=== PATIENT | female | born 1995 | race Native Hawaiian/Other Pacific Islander ===

== ENCOUNTER → 2022-07-23 | Outpatient (CLI) | payer OTHER | LOC: M WHC 13:30 | PROVIDERS: ATTEND Nurse Practitioner Women's Health | DX: Z34.92 Encounter for supervision of normal pregnancy, unspecified, second trimester (principal); Z3A.21 21 weeks gestation of pregnancy ==

== ENCOUNTER 2022-08-23 15:41 | Outpatient (CLI) | payer OTHER ==
[~2022-08-23] VITALS: Ht 165.1 cm; Wt 66.5 kg
[2022-08-23 16:08] VITALS: BP 110/59
[2022-08-23] MEDS ORDERED: HOME MED LIST COMPLETE! XX SCH (16:50)
== END 2022-08-23 16:57 | disposition home or self-care (01) ==
LOC: M LDO 15:41
PROVIDERS: ATTEND Registered Nurse
DX: O26.892 Other specified pregnancy related conditions, second trimester (principal); N89.8 Other specified noninflammatory disorders of vagina; Z3A.26 26 weeks gestation of pregnancy

== ENCOUNTER 2022-11-20 15:51 | Inpatient (IN) | payer OTHER ==
[~2022-11-20] VITALS: Ht 165.1 cm; Wt 77.2 kg
[2022-11-20] VITALS (13 sets, daily range): BP systolic 105–132; BP diastolic 54–73
[2022-11-20] MEDS ORDERED: LACTATED RINGER'S 1000 ML IV STA (16:12)
[2022-11-20] MEDS ORDERED: OXYTOCIN DRIP 30 UNITS in IV 1 EA IV PRN ×4 (16:15)
[2022-11-20] MEDS ORDERED: CARBOPROST TROMETHAMINE 250 MCG/ML AMP IM PRN (16:15)
[2022-11-20] MEDS ORDERED: LIDOCAINE 1% MDV 20ML VIAL INFIL PRN (16:15)
[2022-11-20] MEDS ORDERED: TRANEXAMIC ACID INJection 1,000 MG in NS 100 ML IV PRN (16:15)
[2022-11-20] MEDS ORDERED: METHYLERGONOVINE MALEATE 0.2MG/ML 1ML VIAL IM PRN (16:15)
[2022-11-20] MEDS ORDERED: HOME MED LIST COMPLETE! XX SCH (16:20)
[2022-11-20 17:12] LABS: HEMATOCRIT 29.7 % (36.0-47.0); HEMOGLOBIN 9.4 g/dl (12.0-15.5); MEAN CORPUSCULAR HEMOGLOBIN 25.9 pg (27.0-33.0); MEAN CORPUSCULAR HGB CONC 31.6 g/dl (32.0-36.5); MEAN CORPUSCULAR VOLUME 81.8 fl (80.0-96.0); PLATELET COUNT, AUTOMATED 253 10^3/uL (150-450); RED BLOOD COUNT 3.63 10^6/uL (4.00-5.40)
[2022-11-20] MEDS ORDERED: OXYTOCIN DRIP 30 UNITS in IV 1 EA IV SCH (17:35)
[2022-11-20] MEDS ORDERED: LR 1,000 ML IV SCH (17:35)
[2022-11-20] MEDS: LR 1,000 ML IV SCH (19:51)
[2022-11-21] VITALS (11 sets, daily range): BP systolic 107–126; BP diastolic 56–72
[2022-11-21] MEDS: LR 1,000 ML IV SCH (01:03)
[2022-11-21 03:09] LABS: CORD GAS ABE V -4.7; CORD GAS HCO3 V 20.3 MMOL/L; CORD GAS O2 SAT V 79.1 %; CORD GAS PCO2 V 37.7 mmHg; CORD GAS PH V 7.349 UNITS; CORD GAS PO2 V 36.5 mmHg; CORD GAS SBC V 20.2 MMOL/L; CORD GAS TCO2 V 21.5 MMOL/L
[2022-11-21 03:12] LABS: CORD GAS ABE A -5.4; CORD GAS HCO3 A 23.6 MMOL/L; CORD GAS O2 SAT A 32.5 %; CORD GAS PCO2 A 60.2 mmHg; CORD GAS PH A 7.211 UNITS; CORD GAS PO2 A 17.6 mmHg; CORD GAS SBC A 18.5 MMOL/L; CORD GAS TCO2 A 25.4 MMOL/L
[2022-11-21] MEDS ORDERED: ANUSOL HC CREAM 30GM TOP PRN (03:15)
[2022-11-21] MEDS ORDERED: MOM 30ML SUSPENSION UDC PO PRN (03:15)
[2022-11-21] MEDS ORDERED: DIBUCAINE 1% OINTMENT 30GM TOP PRN (03:15)
[2022-11-21] MEDS ORDERED: IBUPROFEN 800 MG TAB PO PRN (03:15)
[2022-11-21] MEDS ORDERED: ACETAMINOPHEN 500 MG TAB PO PRN (03:15)
[2022-11-21] MEDS: DOCUSATE SODIUM 100MG CAPSULE PO SCH ×2 (08:50→20:34)
[2022-11-21] MEDS: PRENATAL VITAMINS CHEWABLE TABLET PO SCH (08:50)
[2022-11-22 06:00] VITALS: BP 114/53
[2022-11-22] MEDS: DOCUSATE SODIUM 100MG CAPSULE PO SCH (07:49)
[2022-11-22] MEDS: PRENATAL VITAMINS CHEWABLE TABLET PO SCH (07:49)
[2022-11-23] MEDS ORDERED: MEASLES,MUMPS,RUBELLA VACCINE INJ (MMR-II) SC.IMMUN ONE (09:00)
== END 2022-11-22 12:25 | disposition home or self-care (01) | DRG 807 ==
LOC: M LDI 15:51 → M OBS 11-21 04:41
PROVIDERS: ADMIT Advanced Practice Midwife; ATTEND Obstetrics & Gynecology
PROC: 10E0XZZ Delivery of Products of Conception, External Approach (ICD-10-PCS; principal; 2022-11-21)
PROC: 10907ZC Drainage of Amniotic Fluid, Therapeutic from Products of Conception, Via Natural or Artificial Opening (ICD-10-PCS; 2022-11-21)
DX: O76 Abnormality in fetal heart rate and rhythm complicating labor and delivery (principal); Z37.0 Single live birth; Z3A.39 39 weeks gestation of pregnancy